=== PATIENT | male | born 1995 | race Caucasian/White ===

== ENCOUNTER 2020-05-15 03:08 | Emergency (ER) | payer OTHER ==
[2020-05-15] MEDS ORDERED: NORMAL SALINE 1000 ML 1,000 ML IV ONE (03:20)
[2020-05-15] MEDS ORDERED: OLANZAPINE 5 MG TABLET PO ONE (03:20)
--- NOTE | 2020-05-15 03:49 | ER Document Report ---
ED Psych Disorder / Suicide - General Stated Complaint: PSYCH ISSUES Time Seen by Provider: 05/15/20 03:13 Notes: Patient is a 24-year-old male who comes emergency department for chief complaint of hearing voices and anxiety. EMS reports that they came up to the house and he reported that he had "overdosed on my supplements", however upon arrival patient states that he had not overdosed but he was extremely anxious. Patient was pacing around the house and crying and when asked EMS reports he stated that he was "hearing voices". When I asked patient about this, he states that he is hearing voices from God and they are telling him to "run". When I asked him wh at he is supposed be running from he states "of the war". When I asked him which war he was referring to he reported "both the spiritual and the physical one". Patient states that he has been hearing voices for a while and "it is scaring me because when my friends look at me they can see the in my face". Patient is not explicitly suicidal homicidal but it is difficult to get a straight answer from him at this time. Patient also is difficult to get a straight answer about alcohol or recreational drugs although he finally did state that he drank some alcohol tonight. - Related Data Allergies/Adverse Reactions: No Known Allergies Allergy (Unverified 05/15/20 05:28) Past Medical History - General Information source: Patient - Social History Smoking Status: Unknown if Ever Smoked Frequency of alcohol use: Social Drug Abuse: Marijuana Lives with: Alone Family History: Reviewed & Not Pertinent Review of Systems - Review of Systems Constitutional: See HPI EENT: No symptoms reported Cardiovascular: No symptoms reported Respiratory: No symptoms reported Gastrointestinal: No symptoms reported Genitourinary: No symptoms reported Male Genitourinary: No symptoms reported Musculoskeletal: No symptoms reported Skin: No symptoms reported Hematologic/Lymphatic: No symptoms reported Neurological/Psychological: See HPI Physical Exam - Vital signs Vitals: Temp Pulse Resp BP Pulse Ox 98.5 F 103 H 18 147/84 H 97 05/15/20 03:20 05/15/20 03:20 05/15/20 03:20 05/15/20 03:20 05/15/20 03:20 - Notes Notes: GENERAL: Alert, interacts well. No acute distress. HEAD: Normocephalic, atraumatic. EYES: Pupils equal, round, and reactive to light. Extraocular movements intact. ENT: Oral mucosa moist, tongue midline. Oropharynx unremarkable. Airway patent. NECK: Full range of motion. Supple. Trachea midline. No lymphadenopathy. LUNGS: Clear to auscultation bilaterally, no wheezes, rales, or rhonchi. No respiratory distress. Non-tender chest wall. HEART: Regular rate and rhythm. No murmur ABDOMEN: Soft, non-tender. Non-distended. EXTREMITIES: Moves all 4 extremities spontaneously. No edema, normal radial and dorsalis pedis pulses bilaterally. No cyanosis. BACK: no cervical, thoracic, lumbar midline tenderness. No saddle anesthesia, normal distal neurovascular exam. Moves all extremities in full range of motion. NEUROLOGICAL: Alert and oriented x3. Normal speech. Cranial nerves II through XII grossly intact. Strength 5/5 in all extremities. PSYCH: Flat affect, normal contact. Tangential thought, bizarre answers to questions tact, SKIN: Warm, dry, normal turgor. No rashes or lesions noted. Course - Re-evaluation Re-evalutation: 05/15/20 03:29 Patient has difficulty focusing, has broken and tangential thought process, does appear to be possibly responding to internal stimuli, appears acutely psychotic. As result I am concerned patient is a danger to himself although he is not hostile to us at this time. Patient will have IVC work-up performed including CK because of multiple bodybuilding supplements noted to be in his possession. Once patient is medically cleared patient will be evaluated by the mental health team, patient will be placed on IVC paperwork because of his acute psychosis. Work-up unremarkable, patient is medically cleared pending mental health evaluation. Patient is sleeping after Zyprexa. - Vital Signs Vital signs: Temp Pulse Resp BP Pulse Ox 98.5 F 103 H 18 147/84 H 97 05/15/20 03:20 05/15/20 03:20 05/15/20 03:20 05/15/20 03:20 05/15/20 03:20 - Laboratory Result Diagrams: 05/15/20 03:35 05/15/20 03:35 Laboratory results interpreted by me: 05/15/20 05/15/20 05/15/20 03:35 03:35 05:20 Lymph % (Auto) 11.6 L Seg Neutrophils % 80.4 H Creatine Kinase 178 H Urine Ketones TRACE H Urine Ascorbic Acid 40 H Salicylates < 1.0 L Acetaminophen < 10 L - EKG Interpretation by Me Additional EKG results interpreted by me: EKG shows sinus rhythm at a rate of 90, QTc 446, normal axis, no T wave inversions or ST segment changes in consecutive leads. Discharge - Discharge Clinical Impression: Acute psychosis, Anxiety Condition: Stable Disposition: PSYCH HOSP/UNIT
[2020-05-15 03:52] LABS: ABSOLUTE LYMPHOCYTES (AUTO) 0.8 10^3/uL (0.5-4.7); ABSOLUTE MONOCYTES (AUTO) 0.5 10^3/uL (0.1-1.4); ABSOLUTE NEUT (AUTO) 5.6 10^3/uL (1.7-8.2); BASOPHILS % (AUTO) 0.5 % (0-2); EOSINOPHILS % (AUTO) 0.4 % (0-6); HEMATOCRIT 42.5 % (37.9-51.0); HEMOGLOBIN 15.1 g/dL (13.5-17.0); LYMPHOCYTES % (AUTO) 11.6 % (13-45); MEAN CORPUSCULAR HGB CONC 35.4 g/dL (32.0-36.0); MEAN CORPUSCULAR VOLUME 88 fl (80-97); MONOCYTES % (AUTO) 7.1 % (3-13); PLATELET COUNT 224 10^3/uL (150-450); RED BLOOD COUNT 4.86 10^6/uL (4.35-5.55); RED CELL DISTRIBUTION WIDTH 13.1 % (11.5-14.0); SEGMENTED NEUTROPHILS % (AUTO) 80.4 % (42-78); TOTAL CELLS COUNTED % (AUTO) 100 %; WHITE BLOOD COUNT 6.9 10^3/uL (4.0-10.5)
[2020-05-15 04:07] LABS: ALBUMIN 4.4 g/dL (3.5-5.0); ALKALINE PHOSPHATASE 64 U/L (38-126); ANION GAP 8 (5-19); ASPARTATE AMINO TRANSFERASE 26 U/L (17-59); BILIRUBIN,TOTAL 0.5 mg/dL (0.2-1.3); BLOOD UREA NITROGEN 18 mg/dL (7-20); CALCIUM 9.3 mg/dL (8.4-10.2); CARBON DIOXIDE 26 mmol/L (22-30); CHLORIDE 104 mmol/L (98-107); CREATINE KINASE 178 U/L (55-170); GLUCOSE 97 mg/dL (75-110); POTASSIUM 4.1 mmol/L (3.6-5.0)
[2020-05-15 04:08] LABS: ACETAMINOPHEN < 10 ug/mL (10-30); ALCOHOL < 10 mg/dL (NONE DETECTED); SALICYLATE < 1.0 mg/dL (2.0-20.0)
[2020-05-15 05:44] LABS: APPEARANCE,URINE CLEAR; BILIRUBIN,URINE NEGATIVE (NEGATIVE); COLOR,URINE STRAW; GLUCOSE, URINE NEGATIVE (NEGATIVE); KETONES,URINE TRACE mg/dL (NEGATIVE); LEUKOCYTE ESTERASE,URINE NEGATIVE (NEGATIVE); NITRITE,URINE NEGATIVE (NEGATIVE); PROTEIN,URINE NEGATIVE (NEGATIVE); URINE SPECIFIC GRAVITY 1.008; UROBILINOGEN,URINE NEGATIVE mg/dL (<2.0)
[2020-05-15 06:00] LABS: URINE AMPHETAMINES SCREEN NEGATIVE; URINE BARBITURATES SCREEN NEGATIVE; URINE BENZODIAZEPINES SCREEN NEGATIVE; URINE COCAINE SCREEN NEGATIVE; URINE METHADONE SCREEN NEGATIVE; URINE PHENCYCLIDINE SCREEN NEGATIVE
[2020-05-15 06:04] LABS: URINE MARIJUANA (THC) SCREEN UNCONFIRMED POSITIVE
--- NOTE | 2020-05-15 10:07 | EKG REPORT ---
SEVERITY:- NORMAL ECG - SINUS RHYTHM : Confirmed by: Ernestina Mcdowell 15-May-2020 10:06:44
[2020-05-15] MEDS ORDERED: BUSPIRONE HCL 10 MG TABLET PO ONE (15:43)
[2020-05-15] MEDS ORDERED: VENLAFAXINE HCL 37.5 MG CAP.SR.24H PO ONE (15:43)
[2020-05-15 16:40] VITALS: BP 123/62
== END 2020-05-15 16:39 | disposition home or self-care (01) ==
LOC: ER 03:08
DX: F41.9 Anxiety disorder, unspecified (principal); F23 Brief psychotic disorder; F12.10 Cannabis abuse, uncomplicated
CPT/HCPCS: 93005; 99284; 96360; 36415; 80307 ×4; 82550; 83690; 85025; 80053; 81001; 93010; J3490; J7030

== ENCOUNTER 2020-07-23 04:24 | Emergency (ER) | payer OTHER ==
[2020-07-23 04:50] LABS: ABSOLUTE BASOPHILS # (AUTO) 0.1 10^3/uL (0.0-0.2); ABSOLUTE EOSINOPHILS # (AUTO) 0.1 10^3/uL (0.0-0.6); ABSOLUTE LYMPHOCYTES (AUTO) 1.4 10^3/uL (0.5-4.7); ABSOLUTE MONOCYTES (AUTO) 0.7 10^3/uL (0.1-1.4); RED CELL DISTRIBUTION WIDTH 13.1 % (11.5-14.0); TOTAL CELLS COUNTED % (AUTO) 100 %
[2020-07-23 04:58] LABS: ABSOLUTE NEUT (AUTO) 5.7 10^3/uL (1.7-8.2); BASOPHILS % (AUTO) 1.2 % (0-2); HEMATOCRIT 40.2 % (37.9-51.0); HEMOGLOBIN 14.5 g/dL (13.5-17.0); LYMPHOCYTES % (AUTO) 17.4 % (13-45); MEAN CORPUSCULAR VOLUME 89 fl (80-97); MONOCYTES % (AUTO) 8.5 % (3-13); PLATELET COUNT 291 10^3/uL (150-450); RED BLOOD COUNT 4.52 10^6/uL (4.35-5.55); SEGMENTED NEUTROPHILS % (AUTO) 71.9 % (42-78)
[2020-07-23 05:06] LABS: ALCOHOL 16 mg/dL (NONE DETECTED); ALKALINE PHOSPHATASE 65 U/L (38-126); ANION GAP 14 (5-19); ASPARTATE AMINO TRANSFERASE 22 U/L (17-59); BILIRUBIN,DIRECT 0.2 mg/dL (0.0-0.4); BILIRUBIN,TOTAL 0.3 mg/dL (0.2-1.3); BLOOD UREA NITROGEN 8 mg/dL (7-20); CALCIUM 9.1 mg/dL (8.4-10.2); CARBON DIOXIDE 24 mmol/L (22-30); CHLORIDE 103 mmol/L (98-107); GLUCOSE 106 mg/dL (75-110); POTASSIUM 3.8 mmol/L (3.6-5.0); TOTAL PROTEIN 6.5 g/dL (6.3-8.2)
[2020-07-23 05:07] LABS: ACETAMINOPHEN < 10 ug/mL (10-30); SALICYLATE < 1.0 mg/dL (2.0-20.0)
[2020-07-23] MEDS ORDERED: LORAZEPAM 1 MG TABLET PO ONE (05:12)
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
--- NOTE | 2020-07-23 07:04 | EKG REPORT ---
SEVERITY:- OTHERWISE NORMAL ECG - SINUS TACHYCARDIA : Confirmed by: Valente Bravo MD 23-Jul-2020 07:04:06
[2020-07-23 13:02] LABS: APPEARANCE,URINE CLEAR; BILIRUBIN,URINE NEGATIVE (NEGATIVE); COLOR,URINE YELLOW; GLUCOSE, URINE NEGATIVE (NEGATIVE); KETONES,URINE NEGATIVE (NEGATIVE); LEUKOCYTE ESTERASE,URINE NEGATIVE (NEGATIVE); NITRITE,URINE NEGATIVE (NEGATIVE); PROTEIN,URINE NEGATIVE (NEGATIVE); URINE SPECIFIC GRAVITY 1.013; UROBILINOGEN,URINE NEGATIVE mg/dL (<2.0)
[2020-07-23 13:23] LABS: URINE AMPHETAMINES SCREEN NEGATIVE; URINE BARBITURATES SCREEN NEGATIVE; URINE BENZODIAZEPINES SCREEN NEGATIVE; URINE COCAINE SCREEN NEGATIVE; URINE METHADONE SCREEN NEGATIVE; URINE PHENCYCLIDINE SCREEN NEGATIVE
[2020-07-23 13:24] LABS: URINE MARIJUANA (THC) SCREEN UNCONFIRMED POSITIVE
--- NOTE | 2020-07-23 15:05 | ER Document Report ---
Doctor's Note Notes: 07/23/20 15:04 Patient has been evaluated by the psychiatric team they are making him a full IVC. They have asked for Zyprexa 2.5 mg twice daily and Effexor 37.5 mg daily as well as a Covid screen [facility]
[2020-07-23] MEDS: VENLAFAXINE HCL 37.5 MG CAP.SR.24H PO SCH (16:19)
[2020-07-23] MEDS: OLANZAPINE 2.5 MG TABLET PO SCH (18:54)
[2020-07-24] MEDS: VENLAFAXINE HCL 37.5 MG CAP.SR.24H PO SCH (09:54)
[2020-07-24] MEDS: OLANZAPINE 2.5 MG TABLET PO SCH ×2 (09:54→17:38)
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
--- NOTE | 2020-07-24 16:09 | ER Document Report ---
Doctor's Note Notes: 07/24/20 16:08 Patient is lying in the bed in no distress he is awake and alert answers questions appropriately. Has been reevaluated by the psychiatric team today are awaiting possible acceptance at the [facility]
[2020-07-25] MEDS: OLANZAPINE 2.5 MG TABLET PO SCH ×2 (10:53→18:45)
[2020-07-25] MEDS: VENLAFAXINE HCL 37.5 MG CAP.SR.24H PO SCH (10:53)
--- NOTE | 2020-07-25 11:22 | PSYCHOLOGICAL NOTE ---
Psych Note - Psych Note Date seen by psych provider: 07/25/20 Time seen by psych provider: 11:35 Psych Note: Reason for Consult:Suicidal ideation Consent Permissions:Patient's mother, Padmaja [phone] Anibal Cullen, Readjustment Counselor with [facility] Patient arrived to [facility] via EMS for concerns Suicidal ideation. Check in conducted with patient: Patient reported to clinician he is getting "wonky" on the medications; it is unclear what he means. Patient disclosed to attending nurse he felt the medications were not working. Patient was updated on plan of care with possible placement at [facility] once COVID results come back. He reports he has a [facility] appointment this week. He was reminded his appointment is 08/14/2020, not this week. Clinician discussed concern the patient continues to provide conflicting information that supports his noncompliance with treatment. It was explained the only way to develop an effective treatment plan is if the patient full engages and is honest. Patient is reminded of his past events of only providing pieces of trauma events to different providers and never fully explaining his symptoms and triggers. Patient discloses he understands that with out all of the correct information can providers successful assist in healing and building self. Clinical Presentation: Suicidal ideation with plan mood and affect is flat Medication recommendations per [facility] contracted psychiatrist are as follows: Zyprexa 2.5mg twice daily Effexor 37.5mg daily Impression\\plan: Patient is recommended to continue under IVC. Patient reports suicidal ideation with a plan to punch a mirror and take a broken piece to cut his wrists. He reports insomnia connected to having nightmares and obsessive thoughts of his friends that have . There is significant concern the patient has been non-compliant with treatment ie continues to use uncontrolled "supplements" that he identified as steroids purchased online and did not take prescribed medications (these medications were prescribed during the patient last [facility] ED visit and behavioral health evaluation 05/15/2020). While the patient's mother identifies herself as part of the patient's support network, the patient does not use her assistance and both times the patient was in crisis and called 911, she was unaware until waking up the next day. The patient continues to make conflicting and confusing comments in connection to his symptoms, triggers and treatment plan. The patient is in need of medication stabilization and therapeutic interventions to determine the source of the patient presentation ie ptsd, substance use, delusions, anxiety/panic attacks, etc. Dr. Caruso was consulted to care management of this patient; attending physicians in agreement with recommendations and disposition. Case management: [facility]-There are currently beds; however, they need COVID test results. Results are currently pending, will fax once obtained.
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
--- NOTE | 2020-07-25 18:37 | ER Document Report ---
Doctor's Note Notes: 07/25/20 18:37 Patient's vital signs and previous labs, diagnostic images reviewed. Reviewed mental health notes, nurse's notes and previous providers notes. VSS. Pt is in no distress at this time. Denies any SI or HI. General: A&Ox3. Answers questions appropriately. Heart: RRR Lungs: CTAB Psych: Flat affect A/P: Continue monitoring and rec's per MH. Normal diet will likely discharge home tomorrow to family
[2020-07-25] MEDS ORDERED: LORAZEPAM 1 MG TABLET PO ONE (20:28)
[2020-07-26] MEDS: OLANZAPINE 2.5 MG TABLET PO SCH (09:23)
[2020-07-26] MEDS: VENLAFAXINE HCL 37.5 MG CAP.SR.24H PO SCH (09:23)
[2020-07-26 09:54] VITALS: BP 128/65
--- NOTE | 2020-07-26 10:19 | ER Document Report ---
Doctor's Note Notes: 07/26/20 10:18 Transport is here to take patient to [place] where he has IVC placement. Patient is resting comfortably on his stretcher, breathing is even and unlabored and in no acute distress.
== END 2020-07-26 10:33 ==
LOC: ER 04:24
DX: Z04.6 Encounter for general psychiatric examination, requested by authority (principal); F43.10 Post-traumatic stress disorder, unspecified; G47.00 Insomnia, unspecified; R45.851 Suicidal ideations; F41.9 Anxiety disorder, unspecified; T43.596A Underdosing of other antipsychotics and neuroleptics, initial encounter; T43.216A Underdosing of selective serotonin and norepinephrine reuptake inhibitors, initial encounter; Z91.138 Patient's unintentional underdosing of medication regimen for other reason; Z91.14 Patient's other noncompliance with medication regimen; F10.129 Alcohol abuse with intoxication, unspecified; Y90.0 Blood alcohol level of less than 20 mg/100 ml; R00.0 Tachycardia, unspecified; I10 Essential (primary) hypertension; Z75.1 Person awaiting admission to adequate facility elsewhere; Z20.828 Contact with and (suspected) exposure to other viral communicable diseases; F17.200 Nicotine dependence, unspecified, uncomplicated
CPT/HCPCS: 93005; 99285; 36415; 80307 ×4; 82550; 85025; 87635; 80053; 81001; 93010; J3490 ×8; C9803

== ENCOUNTER 2020-08-22 03:45 | Emergency (ER) | payer OTHER ==
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
[2020-08-22] MEDS ORDERED: TRAZODONE HCL 50 MG TABLET PO ONE (04:43)
[2020-08-22 04:54] LABS: ABSOLUTE BASOPHILS # (AUTO) 0.1 10^3/uL (0.0-0.2); ABSOLUTE EOSINOPHILS # (AUTO) 0.1 10^3/uL (0.0-0.6); ABSOLUTE LYMPHOCYTES (AUTO) 1.9 10^3/uL (0.5-4.7); ABSOLUTE MONOCYTES (AUTO) 0.8 10^3/uL (0.1-1.4); BASOPHILS % (AUTO) 0.6 % (0-2); EOSINOPHILS % (AUTO) 0.7 % (0-6); HEMATOCRIT 44.9 % (37.9-51.0); HEMOGLOBIN 15.7 g/dL (13.5-17.0); LYMPHOCYTES % (AUTO) 15.8 % (13-45); MEAN CORPUSCULAR HEMOGLOBIN 31.1 pg (27.0-33.4); MEAN CORPUSCULAR HGB CONC 34.9 g/dL (32.0-36.0); MEAN CORPUSCULAR VOLUME 89 fl (80-97); MONOCYTES % (AUTO) 6.7 % (3-13); PLATELET COUNT 268 10^3/uL (150-450); RED BLOOD COUNT 5.04 10^6/uL (4.35-5.55); RED CELL DISTRIBUTION WIDTH 12.9 % (11.5-14.0); SEGMENTED NEUTROPHILS % (AUTO) 76.2 % (42-78); TOTAL CELLS COUNTED % (AUTO) 100 %; WHITE BLOOD COUNT 11.8 10^3/uL (4.0-10.5)
[2020-08-22 05:13] LABS: ACETAMINOPHEN < 10 ug/mL (10-30); ALBUMIN 4.6 g/dL (3.5-5.0); ALCOHOL < 10 mg/dL (NONE DETECTED); ALKALINE PHOSPHATASE 90 U/L (38-126); ANION GAP 9 (5-19); ASPARTATE AMINO TRANSFERASE 27 U/L (17-59); BILIRUBIN,TOTAL 0.4 mg/dL (0.2-1.3); BLOOD UREA NITROGEN 16 mg/dL (7-20); CALCIUM 9.8 mg/dL (8.4-10.2); CARBON DIOXIDE 26 mmol/L (22-30); CHLORIDE 104 mmol/L (98-107); GLUCOSE 130 mg/dL (75-110); SALICYLATE < 1.0 mg/dL (2.0-20.0); TOTAL PROTEIN 7.4 g/dL (6.3-8.2)
[2020-08-22 13:01] LABS: APPEARANCE,URINE CLEAR; BILIRUBIN,URINE NEGATIVE (NEGATIVE); COLOR,URINE YELLOW; GLUCOSE, URINE NEGATIVE (NEGATIVE); KETONES,URINE NEGATIVE (NEGATIVE); LEUKOCYTE ESTERASE,URINE NEGATIVE (NEGATIVE); NITRITE,URINE NEGATIVE (NEGATIVE); PROTEIN,URINE NEGATIVE (NEGATIVE); URINE SPECIFIC GRAVITY 1.011; UROBILINOGEN,URINE NEGATIVE mg/dL (<2.0)
[2020-08-22 13:16] LABS: URINE AMPHETAMINES SCREEN NEGATIVE; URINE BARBITURATES SCREEN NEGATIVE; URINE BENZODIAZEPINES SCREEN NEGATIVE; URINE COCAINE SCREEN NEGATIVE; URINE METHADONE SCREEN NEGATIVE; URINE PHENCYCLIDINE SCREEN NEGATIVE
[2020-08-22 13:20] LABS: URINE MARIJUANA (THC) SCREEN UNCONFIRMED POSITIVE
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
[2020-08-22] MEDS: CHLORPROMAZINE HCL INJ 25 MG/1 ML AMPULE IM SCH (14:47)
[2020-08-22] MEDS: BENZTROPINE MESYLATE INJ 2 MG/2 ML AMPULE IM SCH (14:48)
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
[2020-08-22] MEDS: OLANZAPINE INJ/PF 10 MG SDV IM SCH (20:28)
[2020-08-23] MEDS ORDERED: OLANZAPINE 5 MG TABLET PO SCH (10:45)
[2020-08-23] MEDS ORDERED: BENZTROPINE MESYLATE 1 MG TABLET PO SCH (10:45)
[2020-08-23] MEDS: OLANZAPINE INJ/PF 10 MG SDV IM SCH (10:46)
[2020-08-23] MEDS: CHLORPROMAZINE HCL INJ 25 MG/1 ML AMPULE IM SCH (10:46)
[2020-08-23] MEDS: BENZTROPINE MESYLATE INJ 2 MG/2 ML AMPULE IM SCH (10:46)
--- NOTE | 2020-08-23 14:45 | PSYCHOLOGICAL NOTE ---
Psych Note - Psych Note Date seen by psych provider: 08/23/20 Time seen by psych provider: 12:35 Psych Note: Reason for Consult:psychosis Consent Permissions: none provided Patient arrived to [facility] via POV asking for a "brain scan." Patient reports he is concerned there is something wrong with his brain. Check in conducted: Patient is calm and confirms he has been sleeping for the last 24 hours on and off. He reports he feels rested. He reports [facility] He disclosed that he was at a friends house the other night and became scared when they started talking about a civil, Trump and Antifa. He reports he still feels there is "something wrong with my brain" after all the time he spent in [place] and being exposed to the burning other possible toxins. He understands he needs to wait for the [facility] but was hoping to get a CT earlier if he was in ED. Patient maintains good eye contact with normal conversational speech. Patient denies any thoughts of wanting to harm himself or others. He denies being fearful of going home. He reports he was scared the other night which is why he drove to the ED. He reports he did not talk to his mom (as identified as a support during a previous visit to [facility]) because he was not home and was at a friend's house. IVC Criteria per MD GS 122C Dangerous to others Within the relevant past the individual No has inflicted or attempted to inflict or threatened to inflict serious bodily harm on another AND No that there is a reasonable probability that this conduct will be repeated as there is an absence of supervision or structure to prevent. OR No has acted in such a way as to create a substantial risk of serious bodily harm to another AND No that there is a reasonable probability that this conduct will be repeated as there is an absence of supervision or structure to prevent. OR No has engaged in extreme destruction of property AND NO that there is a reasonable probability that this conduct will be repeated as there is an absence of supervision or structure to prevent. Previous episodes of dangerousness to others, when applicable, may be considered when determining reasonable probability of future dangerous conduct. Clear, cogent, and convincing evidence that an individual has committed a homicide in the relevant past is prima facie evidence of dangerousness to others. Dangerous to self Within the relevant past the individual has done any of the following: acted in such a way as to show ALL of the following: NO The individual would be unable without care, supervision, and the continued assistance of others not otherwise available, to exercise self- control, judgment, and discretion in the conduct of the individual's daily responsibilities and social relations or to satisfy the individual's need for nourishment, personal or medical care, custodial, or self-protection and safety. AND NO There is a reasonable probability of the individual suffering serious physical debilitation within the near future unless adequate treatment is given. A showing of behavior that is grossly irrational, of actions that the individual is unable to control, of behavior that is grossly inappropriate to the situation, or of other evidence of severely impaired insight and judgment shall create a prima facie inference that the individual is unable to care for himself or herself. Patient no longer is demonstrating manic behaviours and is able to engage in appropriate conversation. Her maintains good eye contact, with normal conversational speech. Patient continues to believe he was exposed to toxin in [place], but he denies he will do anything to harm himself or others. He reports he was hoping to find out information faster coming into ED. OR No has attempted suicide or threatened suicide AND No that there is a reasonable probability of suicide unless adequate treatment is given as there is an absence of supervision or structure to prevent suicide of patient who has made an attempt, serious gesture or threat. OR No has mutilated himself or herself or attempted to mutilate himself or herself AND No that there is a reasonable probability of serious self-mutilation unless adequate treatment is given as there is an absence of supervision or structure to prevent. NOTE: Previous episodes of dangerousness to self, when applicable, may be considered when determining reasonable probability of physical debilitation, suicide, or self-mutilation. Impression\\plan: Patient is recommended for rescind of IVC and is cleared from acute psychiatric services; paperwork is signed and placed in patient's chart. Patient no longer is demonstrating manic behaviours and is able to engage in appropriate conversation. Her maintains good eye contact, with normal conversational speech. Patient continues to believe he was exposed to toxin in [place], but he denies he will do anything to harm himself or others. He has an appointment with the [place] for his concerns in November. He reports he was hoping to find out information faster coming into ED. His beliefs do not cause him or others harm. There is concern the patient became Manic from the Cymbalta [facility]. He confirms he will contact them tomorrow about this. It is also possible the patient is using an unknown substance that is increasing his paranoia; he has a history of buying and abusing online "supplements." Patient agrees to continue using his mother as a support system. He identifies not using her the other night because he was not at home he was actually at a friend's home. Patient does not need assistance in getting home as he drove himself to [facility]. Patient is [facility] to [facility]. Dr. Caruso was consulted to care management of this patient; attending physicians in agreement with recommendations and disposition.
--- NOTE | 2020-08-23 15:00 | ER Document Report ---
Doctor's Note Notes: 08/23/20 14:35 PHYSICAL EXAMINATION: GENERAL: Well-appearing and in no acute distress. HEAD: Atraumatic, normocephalic. EYES: sclera anicteric, conjunctiva are normal. ENT: nares patent. Moist mucous membranes. NECK: Normal range of motion, supple LUNGS: CTAB and equal. No wheezes rales or rhonchi. HEART: Regular rate and rhythm without murmurs ABDOMEN: Soft, nontender BACK: . No CVA tenderness NEUROLOGICAL: Cranial nerves grossly intact. Normal speech. PSYCH: Normal mood, normal affect. SKIN: Warm, Dry, normal turgor, no rashes or lesions noted Patient appears medically clear for discharge at this time, behavioral health team does not feel that patient meets IVC criteria at this time, patient denies any SI or HI.
[2020-08-23 15:08] VITALS: BP 141/83
== END 2020-08-23 15:08 | disposition home or self-care (01) ==
LOC: ER 03:45
DX: F23 Brief psychotic disorder (principal); F43.10 Post-traumatic stress disorder, unspecified; F17.200 Nicotine dependence, unspecified, uncomplicated; Z20.828 Contact with and (suspected) exposure to other viral communicable diseases
CPT/HCPCS: 99285; 96372; 36415; 80307 ×4; 85025; 87635; 80053; 81001; J0515; J3230; C9803